=== PATIENT | male | born 1975 | race Caucasian/White ===

== ENCOUNTER 2018-05-29 16:27 | Emergency (ER) | payer OTHER ==
[~2018-05-29] VITALS: Ht 182.9 cm; Wt 169.6 kg
[~2018-05-29 16:27] MED LIST: Cleocin HCl300 MG PO; GABA400 PO; IBUP800 PO; Naprosyn500 MG PO
[2018-05-29] MEDS ORDERED: Norco 5-325 Ta1 EACH PO (16:50)
[2018-05-29] MEDS ORDERED: Amoxicillin875 MG PO (16:50)
== END 2018-05-29 16:59 | disposition home or self-care (01) ==
LOC: ER 16:27
DX: K02.9 Dental caries, unspecified (principal); Z88.5 Allergy status to narcotic agent; Z79.899 Other long term (current) drug therapy; Z87.891 Personal history of nicotine dependence
CPT/HCPCS: 99282